=== PATIENT | female | born 1945 | race Caucasian/White ===

== ENCOUNTER → 2021-04-11 16:14 | Outpatient (CLI) | payer SELFPAY ==
--- NOTE | ~2021-04-11 | MM_ITS ---
EXAMINATION: MM screening luis BI w monserrat HISTORY: Screening TECHNIQUE: Craniocaudal and mediolateral oblique 3-D tomosynthesis images were obtained and synthetic 2-D images were generated. CAD analysis was submitted and interpreted. COMPARISON: Comparison to multiple prior studies sequentially, with oldest reviewed study dated 05/02. BREAST PARENCHYMAL COMPOSITION: The breasts are almost entirely fatty. FINDINGS: There is no evidence of suspicious mass, calcification, or architectural distortion to sugg est malignancy in either breast. There has been no suspicious interval change. IMPRESSION: 1. No mammographic evidence of malignancy. 2. Recommend routine screening mammography in one year. BI-RADS Category 1: Negative Reviewed, dictated and finalized at location A. ENT OFFICER
== END ==
PROVIDERS: Visit Provider Obstetrics & Gynecology Gynecology
DX: Z12.31 Encounter for screening mammogram for malignant neoplasm of breast (principal)
CPT/HCPCS: 77063; 77067

== ENCOUNTER → 2021-07-11 12:09 | Outpatient (CLI) | payer SELFPAY ==
--- NOTE | ~2021-07-11 | XR_ITS ---
EXAMINATION: XR chest 2V DATE: 07/11/2021 12:38 INDICATION: Clear cell endometrial cancer. Shortness of breath. TECHNIQUE: Frontal and lateral views of the chest were obtained. COMPARISON: Chest 2 views 04/03/2019, chest CT 04/03/2019 FINDINGS: There is no pneumonia, pleural effusion, or pneumothorax. Cardiomegaly is noted. IMPRESSION: 1. Cardiomegaly. Reviewed, dictated and finalized at location A. IMPRESSION: 1. Cardiomegaly.
== END ==
PROVIDERS: Visit Provider Obstetrics & Gynecology Gynecology
DX: Z85.89 Personal history of malignant neoplasm of other organs and systems (principal); I51.7 Cardiomegaly
CPT/HCPCS: 71046

== ENCOUNTER 2022-01-12 13:12 | Emergency (ER) | payer SELFPAY ==
--- NOTE | 2022-01-12 13:22 | ED.WOUNDLAC ---
HPI - Wound/Laceration General Chief Complaint: Wound/Laceration Stated Complaint: Laceration to index finger and base of thumb Time Seen by Provider: 01/12/22 13:40 Source: patient and RN notes reviewed Mode of arrival: ambulatory Limitations: no limitations History of Present Illness HPI narrative: 76-year-old female presents to the [facility] with an avulsion of skin second finger right hand. Also has a couple of puncture rosenbaum from an antique glass bowl that broke. Unknown last Tdap. Flap of skin noted. Bleeding is controlled. Has full range of motion of all fingers. Able to make a fist. No foreign bodies noted Patient tetanus UTD: No Related Data Home Medications Medication Instructions Recorded Confirmed sertraline 50 mg tablet 50 mg PO DAILY 04/03/19 01/12/22 apixaban 5 mg tablet (Eliquis) 5 mg PO DAILY 01/12/22 01/12/22 metoprolol tartrate 25 mg tablet 25 mg PO DAILY 01/12/22 01/12/22 Allergies Allergy/AdvReac Type Severity Reaction Status Date / Time No Known Allergies Allergy Verified 01/12/22 13:35 Review of Systems Review of Systems: All systems reviewed & are unremarkable except as noted in HPI and below Constitutional: Constitutional: Reports no additional constitutional complaints, Denies chills and Denies fever(s) Eyes: Eyes: Reports no additional eye complaints ENT: Reports system reviewed and no additional complaints, except as documented Cardiovascular: Cardiovascular: Reports no additional cardiovascular complaints Respiratory: Respiratory: Reports no additional respiratory complaints Gastrointestinal: Gastrointestinal: Reports no additional gastrointestinal complaints Musculoskeletal: Musculoskeletal: Reports no additional musculoskeletal complaints Integumentary/Breasts: Skin/Breast: Reports as per HPI Neurologic: Reports system reviewed and no additional complaints, except as documented Psychiatric: Psychiatric: Reports no additional psychiatric complaints Allergic/Immunologic: Allergic/Immunologic: Reports no additional allergic/immunologic complaints [facility] Past Medical History Medical History Seasonal allergies Social History Social History Smoking status: Never smoker Gender identity (if verbalized by the patient): Female Comments At the time of my signature, I reviewed and agree with the nursing past medical, surgical, social, and family history. There is no relevant family history pertinent to the patient complaint. Exam Const: General: healthy appearing, no acute distress and alert Nutritional Appearance: well nourished Orientation/consciousness: patient oriented x3 Limitations: no limitations HENMT: Head: normal to inspection Ears: external ears normal Eyes: General: appearance normal, both eyes and all related structures Pupils: Equal, round and reactive pupils present Neck: Neck: normal visual inspection, no lymphadenopathy and no meningeal signs Chest: Chest palpation & inspection: normal inspection of the chest Resp: Effort & Inspection: normal respiratory effort and no use of accessory muscles Auscultation: clear to auscultation bilaterally, no crackles, no rales, no rhonchi and no wheezes Cardio: Rate: regular rate Rhythm: regular rhythm GI: GI Palp: Yes Soft to palpation and No Tenderness to palpation present (GI) Back/Spine/Pelvis: Cervical Spine: normal cervical lordosis Thoracic/Lumbar Spine: thoracic and lumbar spine normal to inspection Skin: General skin exam: normal color Rashes: no rashes Wounds: no wounds Other: 2 x 2 centimeter flap of skin noted to the second finger left hand, multiple abrasions noted throughout the hand, puncture wounds. Full range of motion of all 5 fingers with sensation intact distal to injury. Capillary refill under 2 seconds. Neuro: General: patient oriented x3, moves all extremities, no menin
[2022-01-12 13:24] VITALS: BP 149/68; PULSE 60; RESP 18; TEMP 35.6; O2SAT 98
[2022-01-12] MEDS: TETANUS/DIPHTHERIA TOXOIDS ADSORB 0.5 ML VIAL (*BKC) IM (13:56)
== END 2022-01-12 15:02 | disposition home or self-care (01) ==
PROVIDERS: Emergency Provider Nurse Practitioner; PCP Student in an Organized Health Care Education/Training Program
DX: S61.210A Laceration without foreign body of right index finger without damage to nail, initial encounter (principal); W25.XXXA Contact with sharp glass, initial encounter; Z23 Encounter for immunization; I10 Essential (primary) hypertension; M19.90 Unspecified osteoarthritis, unspecified site; F32.A Depression, unspecified; Z85.42 Personal history of malignant neoplasm of other parts of uterus
CPT/HCPCS: 12001; 90471; 90714; 99213; G0463

== ENCOUNTER → 2022-09-03 10:13 | Outpatient (CLI) | payer MEDICARE, SELFPAY ==
--- NOTE | ~2022-09-03 | XR_ITS ---
EXAMINATION: XR chest 2V 09/03/2022 10:46 INDICATION: Clear cell uterine cancer. PROCEDURE: 2 view chest COMPARISON: Comparison to multiple prior studies sequentially, with oldest reviewed study dated 05/27. FINDINGS: The lungs are clear. There is mild pulmonary vascular congestion. The lungs are hyperinflat ed which is consistent with, but not diagnostic of chronic obstructive pulmonary disease. The cardio mediastinal silhouette is within normal limits. There are no pleural effusions. There is no pneumot horax suspected. IMPRESSION: 1: Mild pulmonary vascular congestion.. Reviewed, dictated and finalized at location B.
== END ==
PROVIDERS: PCP Student in an Organized Health Care Education/Training Program; Visit Provider Obstetrics & Gynecology Gynecology
DX: C55 Malignant neoplasm of uterus, part unspecified (principal); R91.8 Other nonspecific abnormal finding of lung field
CPT/HCPCS: 71046

== ENCOUNTER 2023-07-08 12:01 | Outpatient (CLI) | payer MEDICARE, SELFPAY ==
--- NOTE | ~2023-07-08 | DEXA_ITS ---
Bone Density Report Name: AALIYAH AMADOR Age: 77 Sex: Female Ethnicity: White Date of : 1945 Indication: postmenopausal; screening for osteoporosis; height loss; cancer; hysterectomy; Referring Provider: GRANT BARNETT Study: Bone densitometry was performed. Exam Date: July 08, 2023 Accession number: [id number] Bone Density: Region BMD T-score Z-score Classification AP Spine (L3, L4) 1.024 -0.7 2.1 Normal Femoral Neck (Left) 0.815 -0.3 2.0 Normal Total Hip (Left) 0.979 0.3 2.3 Normal Femoral Neck (Right) 0.735 -1.0 1.3 Normal Total Hip (Right) 0.969 0.2 2.3 Normal Total Hip Mean 0.974 0.3 2.3 Normal World Health Organization criteria for BMD impression classify patients as: Normal (T-score at or above -1.0), Osteopenia (T-score between -1.0 and -2.5), or Osteoporosis (T-score at or below -2.5). 10-year Fracture Risk: FRAX not reported because: All T-scores for Spine Total, Hip Total, Femoral Neck at or above -1.0 Previous Exams: Region Exam Age BMD T-score BMD Change BMD Change Date g/cm2 vs Baseline vs Previous AP Spine(L3, L4) 07/08/2023 77 1.024 -0.7 0.010 -0.047* 09/28/2009 63 1.072 -0.3 0.057 0.057 06/26/2004 58 1.014 -0.8 Total Hip(Left) 07/08/2023 77 0.979 0.3 -0.189 -0.001 07/22/2018 72 0.980 0.3 -0.188 -0.068* 11/30/2013 67 1.048 0.9 -0.120 0.051* 09/28/2009 63 0.997 0.4 -0.171 -0.171 06/26/2004 58 1.168 1.8 Total Hip(Right) 07/08/2023 77 0.969 0.2 -0.123 0.019 07/22/2018 72 0.950 0.1 -0.142 -0.085* 11/30/2013 67 1.036 0.8 -0.056 0.025 09/28/2009 63 1.011 0.6 -0.081 -0.081 06/26/2004 58 1.092 1.2 *Denotes significance at 95% confidence level, LSC for AP Spine = 0.022 g/cm2, LSC for Total Hip = 0.027 g/cm2 Clinical Information Provided by Patient: Has 3 or more alcoholic drinks per day Has used the following medications: Vitamin D, Calcium, radiation only Has the following medical conditions: Cancer, Hysterectomy, Skin cancer Patient maximum height was 68 Menopause Age: 50 No regular weight bearing exercise Drinks caffeinated beverages Onset of menses at age 8 Number of children 3 Impression: The patient has normal bone mass. The patient has risk fa
--- NOTE | ~2023-07-08 | XR_ITS ---
EXAMINATION: XR chest 2V 07/08/2023 12:44 INDICATION: Cellular uterine cancer PROCEDURE: 2 view chest COMPARISON: Comparison to multiple prior studies sequentially, with oldest reviewed study dated 12/2018. FINDINGS: The lungs are clear. The cardiomediastinal silhouette is within normal limits. There are no pleural effusions. There is no pneumothorax suspected. IMPRESSION: 1: NO ACUTE CARDIOPULMONARY DISEASE. Reviewed, dictated and finalized at location B.
--- NOTE | ~2023-07-08 | MM_ITS ---
EXAMINATION: MM screening luis BI w monserrat HISTORY: Screening mammogram TECHNIQUE: Craniocaudal and mediolateral oblique 3-D tomosynthesis images were obtained and synthetic 2-D images were generated. CAD analysis was submitted and interpreted. COMPARISON: 04/11/2021 bilateral screening mammogram BREAST PARENCHYMAL COMPOSITION: The breasts are almost entirely fatty. FINDINGS: There is no evidence of suspicious mass, calcification, or architectural distortion to sugg est malignancy in either breast. There has been no suspicious interval change. IMPRESSION: 1. No mammographic evidence of malignancy. 2. Recommend routine screening mammography in one year. BI-RADS Category 1: Negative Reviewed, dictated and finalized at location A.
== END 2023-07-08 12:02 ==
PROVIDERS: PCP Obstetrics & Gynecology Gynecology; Visit Provider Obstetrics & Gynecology Gynecology
DX: Z12.31 Encounter for screening mammogram for malignant neoplasm of breast (principal); Z78.0 Asymptomatic menopausal state
CPT/HCPCS: 71046; 77063; 77067; 77080

== ENCOUNTER 2023-08-15 05:53 | Day surgery (SDC) | payer MEDICARE, SELFPAY ==
[2023-07-08 08:42] VITALS: BMI 35.4
[2023-07-29 11:24] VITALS: BMI 36.3
--- NOTE | 2023-08-05 10:38 | PC.NURSE ---
Spoke with pt regarding Eliquis. Informed pt clearance received from Dr Agosto's office and pt is ok to hold Eliquis for 2 days prior to procedure. Pt verbalized understanding of last dose of Saturday, August 12, 2023.
[2023-08-15 07:00] VITALS: BMI 36.1
--- NOTE | 2023-08-15 07:19 | PM.HPGS ---
History of Present Illness History of Present Illness Consent: Risks, benefits, and alternatives have been discussed and questions answered. Patient agrees to proceed with procedure. Chief complaint: Chronic Diarrhea Narrative: Cherie Saunders is a 77 year old female referred by Dr. Thorpe for colonoscopy. Patient complains of intermittent diarrhea. She states perhaps every 4-5 days will have loose stools. This very urgent and forceful and dissipates very quickly. She denies any bleeding. She denies any abdominal pain. She has had no weight loss. Patient was found to have positive Cologuard test in 2020 but never follow through with colonoscopy. Patient denies any weight loss. Her family history is noncontributory. Patient has tried no specific therapy for her diarrhea. No investigation has been initiated. Review of Systems Review of Systems: All systems reviewed & are unremarkable except as noted in HPI and below PMFSH Past Medical History Medical History (Updated 08/15/23 @ 07:22 by Jj Wright MD) Seasonal allergies Social History Social History Smoking status: Never smoker Alcohol intake: current Drinks per week: 20 Substance use type: does not use Living arrangements: with family Gender identity (if verbalized by the patient): Female Spiritual care concerns: No Meds Home Medications and Allergies Home Medications Medication Instructions Recorded Confirmed Type apixaban 5 mg tablet (Eliquis) 5 mg PO DAILY 01/12/22 08/15/23 History calcium 500 mg tablet 500 mg PO DAILY 07/29/23 08/15/23 History cholecalciferol (vitamin D3) 25 25 mcg PO DAILY 07/29/23 08/15/23 History mcg (1,000 unit) tablet (Vitamin D3) lisinopril 5 mg tablet 5 mg PO DAILY 07/29/23 08/15/23 History metoprolol succinate 50 mg 50 mg PO DAILY 07/29/23 08/15/23 History tablet,extended release 24 hr Allergies Allergy/AdvReac Type Severity Reaction Status Date / Time No Known Allergies Allergy Verified 08/15/23 07:07 Exam Narrative: Physical exam reveals patient to be alert. Vital signs stable. HEENT exam is unremarkable. Patient is anicteric. Lungs are clear to auscultation and percussion. Is without murmur or extra sounds. Abdomen bowel sounds are present soft nontender with no organomegaly. Digital external rectal exam is normal. Assessment and Plan Assessment and plan (1) Diarrhea: Code(s): R19.7 - Diarrhea, unspecified Status: Acute Assessment and Plan: Patient with intermittent diarrhea that suggest she may come in contact with a food or Spice that contributes to her diarrhea. Cannot exclude spasms contributing to this diarrhea. Recommend high-fiber diet. Colonoscopy requested will be performed. Further recommendations may be given after endoscopy. (2) Positive colorectal cancer screening using Cologuard test: Code(s): R19.5 - Other fecal abnormalities Status: Acute Assessment and Plan: In 2020 Cologuard test was positive. colonoscopy to be performed as screening test, also do a search for polyps.
[2023-08-15] MEDS: LACTATED RINGERS 1,000 ML 150 ML IV CONT (07:21)
--- NOTE | 2023-08-15 07:22 | WPDANESEPPF ---
Anes - Initial Pre Proc Eval Procedure: Operation Date: 08/15/23 08:00 Proposed Procedures p Diagnostic Colonoscopy - Jj Wright MD Date/Time: 08/15/23 07:22 Surgeon: Jj Wright MD Pre Op Diagnosis: Chronic Diarrhea Patient Data Age: 77 Gender: F Height: 1.6 m Weight: 92.4 kg Allergies Allergy/AdvReac Type Severity Reaction Status Date / Time No Known Allergies Allergy Verified 08/15/23 07:07 Home Medications Medication Instructions Recorded Confirmed Type apixaban 5 mg tablet (Eliquis) 5 mg PO DAILY 01/12/22 08/15/23 History calcium 500 mg tablet 500 mg PO DAILY 07/29/23 08/15/23 History cholecalciferol (vitamin D3) 25 25 mcg PO DAILY 07/29/23 08/15/23 History mcg (1,000 unit) tablet (Vitamin D3) lisinopril 5 mg tablet 5 mg PO DAILY 07/29/23 08/15/23 History metoprolol succinate 50 mg 50 mg PO DAILY 07/29/23 08/15/23 History tablet,extended release 24 hr Patient hx anesthesia problems: none Family hx anesthesia problems: none Results Review: All pre-operative results and documents have been reviewed as part of the pre-operative evaluation. [facility] Past Medical History Medical History Seasonal allergies Social History Social History Smoking status: Never smoker Alcohol intake: current Drinks per week: 20 Substance use type: does not use Living arrangements: with family Gender identity (if verbalized by the patient): Female Spiritual care concerns: No Anes - Eval Final PreProcedure Day of Procedure 08/15/23 07:22 Patient weight: obese Heart: regular rate and rhythm Lungs: clear to auscultation Airway: Mallampati scale class II Neurological: alert and oriented Last oral intake: >/= 8 hours ASA classification: III Emergent: no Anesthetic plan: proceed Anesthesia type and monitoring: general GIVS and standard monitoring Results Review: All pre-operative results and documents have been reviewed as part of the pre-operative evaluation. Informed Consent: The patient's anesthetic plan and its attendant risks and benefits were discussed with the patient/family/POA. Questions were solicited and answers provided to the satisfaction of the patient/family/POA.
[2023-08-15 08:00] VITALS: BP 98/57; PULSE 60; RESP 12; O2SAT 99
[2023-08-15 08:10] VITALS: BP 107/59; PULSE 60; RESP 14; O2SAT 98
--- NOTE | 2023-08-15 08:19 | WPDANESPN ---
Anes - Prog Note Post-Op Date/Time: 08/15/23 08:19 Cardiovascular status: normal Respiratory status: normal Airway patency: baseline Mental status: baseline Post-Op hydration status: normal Vital Signs: Last Vital Signs Pulse 60 08/15/23 08:10 Resp 14 08/15/23 08:10 BP 107/59 L 08/15/23 08:10 Pulse Ox 98 08/15/23 08:10 O2 Del Method Room Air 08/15/23 08:10 Pain Score (VAS): 0/10 I/O: Intake & Output 08/14/23 08/15/23 08/15/23 23:59 07:59 15:59 Intake Total 0 Balance 0 Patient Feedback: Patient satisfied with anesthetic care.
[2023-08-15 08:20] VITALS: BP 105/88; PULSE 57; RESP 16; O2SAT 100
== END 2023-08-15 08:36 | disposition home or self-care (01) ==
PROVIDERS: PCP Student in an Organized Health Care Education/Training Program; Visit Provider Internal Medicine Gastroenterology
PROC: 0DJD8ZZ Inspection of Lower Intestinal Tract, Via Natural or Artificial Opening Endoscopic (ICD-10-PCS; CPT 45378; principal; 2023-08-15 08:00)
DX: R19.5 Other fecal abnormalities (principal); R19.7 Diarrhea, unspecified; D12.2 Benign neoplasm of ascending colon; K64.8 Other hemorrhoids
CPT/HCPCS: 45385; 45381; 45380

== ENCOUNTER 2023-08-15 07:00 | Outpatient (NON) | payer MEDICARE, SELFPAY | END 2023-08-15 07:01 | disposition home or self-care (01) | PROVIDERS: PCP Student in an Organized Health Care Education/Training Program; Visit Provider Internal Medicine Gastroenterology | DX: R19.5 Other fecal abnormalities (principal) | CPT/HCPCS: 88305 ==

== ENCOUNTER 2025-02-12 14:38 | Outpatient (CLI) | payer SELFPAY ==
--- NOTE | ~2025-02-12 | XR_ITS ---
EXAMINATION: XR chest 2V, 02/12/2025 15:00 CDT HISTORY: Personal history of malignant neoplasm of other parts of carolyn COMPARISON: No comparisons available. Technique: 2 views obtained. Findings: The lungs are clear, no effusion. No pneumothorax. Heart is normal size. Mediastinal and hilar contours are within normal limits. Bony thorax no acute abnormality. Impression: No acute cardiopulmonary abnormality. Reviewed, dictated and finalized at location P. Impression: No acute cardiopulmonary abnormality.
== END 2025-02-12 14:39 | disposition home or self-care (01) ==
PROVIDERS: PCP Student in an Organized Health Care Education/Training Program; Visit Provider Nurse Practitioner
DX: Z85.42 Personal history of malignant neoplasm of other parts of uterus (principal)
CPT/HCPCS: 71046